=== PATIENT | male | born 1955 | race Asian ===

== ENCOUNTER 2021-07-31 10:33 | Emergency (ER) | payer OTHER ==
[2021-07-31 10:52] VITALS: BP 164/91; PULSE 70; TEMP 98; BMI 29.0
[2021-07-31] MEDS ORDERED: DIPHTH,PERTUSS(ACELL),TET 0.5 ML DISP.SYRIN IM ONE ×2 (11:54→11:56)
[2021-07-31] MEDS ORDERED: KETOROLAC TROMETHAMINE 30 MG/1 ML VIAL IM ONE (11:56)
[2021-07-31] MEDS ORDERED: KETOROLAC TROMETHAMINE 30 MG/1 ML VIAL ONE (11:58)
== END 2021-07-31 13:32 | disposition left against medical advice (07) ==
LOC: JER 10:33 → JERFT 10:33
PROC: 3E0234Z Introduction of Serum, Toxoid and Vaccine into Muscle, Percutaneous Approach (ICD-10-PCS; principal; 2021-07-31)
PROC: 3E0233Z Introduction of Anti-inflammatory into Muscle, Percutaneous Approach (ICD-10-PCS; 2021-07-31)
DX: S61.112A Laceration without foreign body of left thumb with damage to nail, initial encounter (principal); W26.0XXA Contact with knife, initial encounter
CPT/HCPCS: 73140-TC-LT-FY; 90715; 99284-25